=== PATIENT | male | born 1945 | race Caucasian/White ===

== ENCOUNTER 2016-08-21 13:15 | Emergency (ER) | payer MEDICARE, OTHER ==
[~2016-08-21] VITALS: Ht 170.2 cm; Wt 90.0 kg
[~2016-08-21 13:15] MED LIST: ALLO100 PO; APIX5 PO; LOPE2TAB3 PO; NEPHCAP PO; PANT40IN3 PO; PRAV20 PO
[2016-08-21 13:52] VITALS: BP 141/68; PULSE 73; RESP 20; O2SAT 100
[2016-08-21] MEDS ORDERED: SODIUM CHLORIDE 0.9% FLUSH 5 ML FLUSH IVF PRN (14:00)
[2016-08-21] MEDS ORDERED: NITROGLYCERIN 0.4 MG SL 25 TABS/BTL SL ONE (14:00)
--- NOTE | 2016-08-21 14:15 | PD ---
HPI Chief Complaint: Chest Pain Time Seen by Provider: 14:00 Travel History International Travel<30 days: No Contact w/Intl Traveler<30days: No Traveled to known affect area: No History of Present Illness HPI Patient is a 71-year-old male presenting to the emergency department for evaluation of chest pain. Patient states the pain in his chest started at 11 AM this morning, he was sitting on his porch when the pain started. Patient stated at that same time he felt short of breath, lightheaded, nauseated. He states the pain is a 7 out of 10 and describes it as pressure-like. Patient's significant other is at bedside and states the patient was acting spacey, mumbling when the pain initially started. Patient states he was in [facility] last week with strokelike symptoms and diagnosed with a TIA. He also reports having cardiac stents replaced one month ago with Dr. johnson in [facility] as well. Patient's past medical history includes pacemaker/defibrillator, atrial fibrillation, congestive heart failure, end-stage renal disease on dialysis, coronary artery disease, CVA, diabetes, hypertension. Patient's head to open- heart surgeries. He's had a triple bypass in 1982, quadruple bypass in 2003. PFSH Past Medical History Hx Anticoagulant Therapy: Yes (COUMADIN, PLAVIX ) Anemia: Yes (chronic GI bleed) Arthritis: Yes Asthma: No Atrial Fibrillation: Yes Autoimmune Disease: No Blood Disorders: No Anxiety: No Depression: No Cancer: No Cardiac Catheterization: Yes High Cholesterol: Yes Chemotherapy: No Chest Pain: Yes Congestive Heart Failure: Yes COPD: No Cerebrovascular Accident: Yes Coronary Artery Disease: Yes Diabetes: Yes Patient Takes Glucophage: No Dialysis: Yes (--) Diminished Hearing: No Gastrointestinal Disorders: Yes (chronic GI bleed) GERD: Yes Glaucoma: No Headaches: No Hepatitis: No Hiatal Hernia: Yes Heparin Induced Thrombocytopen: No Hypertension: Yes Immune Disorder: No Kidney Stones: No Musculoskeletal: Yes (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) Neurologic: Yes (CVA X 9, DIABETIC NEUROPATHY, RT SIDE WEAKNESS) Psychiatric: No Reproductive: No Respiratory: No Immunizations Current: Yes Migraines: No Myocardial Infarction: Yes Radiation Therapy: No Renal Failure: Yes (on hemodialysis) Seizures: No Sickle Cell Disease: No Sleep Apnea: No Thyroid Disease: No Ulcer: Yes ?: Not Past Surgical History AICD: Yes Appendectomy: Yes Arteriovenous Shunt: Yes (LEFT FOREARM FISTULA) Body Medical Devices: aicd Cholecystectomy: Yes Coronary Artery Bypass Graft: Yes (triple, quadruple) Coronary Stent: Yes Ear Surgery: No Endocrine Surgery: No Eye Surgery: Yes (RIGHT CATARACT-CURRENT. LEFT FIXED PRIOR) Genitourinary Surgery: No Gynecologic Surgery: No Insulin Pump: No Joint Replacement: No Neurologic Surgery: No Oral Surgery: No Pacemaker: Yes Thoracic Surgery: Yes Tonsillectomy: Yes Family History Family Myocardial Infarction: Yes Social History Alcohol Use: No Tobacco Use: No Substance Use: No Allergies-Medications (Allergen,Severity, Reaction): Coded Allergies: Morphine (Verified Allergy, Severe, GI UPSET/SWELLING, 08/21/16) Sulfa (Verified Allergy, Severe, SWELLING , 08/21/16) MRI PRECAUTION (Verified Adverse Reaction, Severe, PACEMAKER, 08/21/16) NON REVO PACEMAKER PER PT, NO CARD, DML 02/15/16 Gabapentin (Verified Adverse Reaction, Mild, 08/21/16) Reported Meds & Prescriptions Reported Meds & Active Scripts Active Reported Tramadol (Tramadol HCl) 50 Mg Tab 25 Mg PO Q4H PRN Nitroglycerin SL (Nitroglycerin) 0.4 Mg Subl 0.4 Mg SL DIRECTED PRN ONE TABLET UNDER THE TONGUE NEEDED FOR CHEST PAIN, MAY REPEAT EVERY FIVE MINUTES FOR A TOTAL OF 3 DOSES OR CALL 911 IF NO RELIEF Stool Softener (Docusate Sodium) 100 Mg Cap 0 PO Nephrocaps (B-Complex W/ C & Folic Acid) 1 Cap 1 Cap PO DAILY If on dialysis, take after treatment. Benadryl Allergy (Diphenhydramine HCl) 25 Mg Tab 25 Mg PO Q6H PRN Loperamide (Loperamide HCl) 2 Mg Tab 2 Mg PO DIRECTED PRN One tablet after each loose stool. Not to exceed 8 tablets per day. Plavix (Clopidogrel Bisulfate) 75 Mg Tab 75 Mg PO DAILY Coumadin (Warfarin) 1 Mg Tab 1 Mg PO DAILY Pantoprazole (Pantoprazole Sodium) 40 Mg Tab 40 Mg PO DAILY Zyloprim (Allopurinol) 100 Mg Tab 100 Mg PO DAILY Review of Systems Except as stated in HPI: all other systems reviewed are Neg General / Constitutional: No: Fever Eyes: No: Blurred Vision HENT: Positive: Lightheadedness, No: Headaches Cardiovascular: Positive: Chest Pain or Discomfort, No: Tachycardia, Diaphoresis, Syncope, Edema Respiratory: Positive: Shortness of Breath, No: Cough, Wheezing Gastrointestinal: Positive: Nausea, No: Vomiting, Diarrhea, Abdominal Pain Musculoskeletal: No: Myalgias Neurologic: No: Syncope Physical Exam Narrative GENERAL: Well-developed, well-nourished, alert elderly gentleman. Resting comfortably in no acute distress. Significant other at bedside. SKIN: Warm and dry. HEAD: Atraumatic. Normocephalic. EYES: Pupils equal and round. No scleral icterus. No injection or drainage. ENT: No nasal bleeding or discharge. Mucous membranes pink and moist. NECK: Trachea midline. No JVD. CARDIOVASCULAR: Irregularly irregular. 2/6 systolic murmur appreciated. Left upper arm AV fistula, positive thrill, positive bruit. RESPIRATORY: No accessory muscle use. Clear to auscultation. Breath sounds equal bilaterally. GASTROINTESTINAL: Abdomen soft, non-tender, nondistended. Hepatic and splenic margins not palpable. MUSCULOSKELETAL: No obvious deformities. No clubbing. No cyanosis. No edema. NEUROLOGICAL: Awake and alert. No obvious cranial nerve deficits. Motor grossly within normal limits. Normal speech. PSYCHIATRIC: Appropriate mood and affect; insight and judgment normal. Data Data Last Documented VS Vital Signs Date Time Temp Pulse Resp B/P Pulse Ox O2 Delivery O2 Flow Rate FiO2 08/21/16 19:10 77 18 126/59 100 Room Air 08/21/16 14:48 98.3 Orders Electrocardiogram (08/21/16 ) Complete Blood Count With Diff (08/21/16 13:26) Comprehensive Metabolic Panel (08/21/16 13:26) Troponin I (08/21/16 13:26) Prothrombin Time / Inr (Pt) (08/21/16 13:26) Act Partial Throm Time (Ptt) (08/21/16 13:26) B-Type Natriuretic Peptide (08/21/16 13:58) Ckmb (Isoenzyme) Profile (08/21/16 13:58) Chest, Single Ap (08/21/16 13:58) Ecg Monitoring (08/21/16 13:58) Bilateral Bp Monitoring (08/21/16 13:58) Iv Access Insert/Monitor (08/21/16 13:58) Oximetry (08/21/16 13:58) Sodium Chloride 0.9% Flush (Ns Flush) (08/21/16 14:00) Nitroglycerin Sl (Nitrostat Sl) (08/21/16 14:00) Tramadol (Ultram) (08/21/16 16:15) Ondansetron Inj (Zofran Inj) (08/21/16 16:30) Troponin I (08/21/16 17:46) Labs Laboratory Tests Test 08/21/16 08/21/16 08/21/16 14:24 16:11 18:37 Sodium Level 139 MEQ/L Potassium Level 4.0 MEQ/L Chloride Level 101 MEQ/L Carbon Dioxide Level 25.8 MEQ/L Anion Gap 12 MEQ/L Blood Urea Nitrogen 30 MG/DL Creatinine 5.09 MG/DL Estimat Glomerular Filtration 11 ML/MIN Rate Random Glucose 132 MG/DL Calcium Level 9.2 MG/DL Total Bilirubin 0.9 MG/DL Aspartate Amino Transf 18 U/L (AST/SGOT) Alanine Aminotransferase 11 U/L (ALT/SGPT) Alkaline Phosphatase 277 U/L Total Creatine Kinase 91 U/L Troponin I 0.04 NG/ML 0.03 NG/ML B-Type Natriuretic Peptide 2127 PG/ML Total Protein 7.5 GM/DL Albumin 3.2 GM/DL White Blood Count 3.1 TH/MM3 Red Blood Count 2.69 MIL/MM3 Hemoglobin 8.5 GM/DL Hematocrit 25.4 % Mean Corpuscular Volume 94.4 FL Mean Corpuscular Hemoglobin 31.7 PG Mean Corpuscular Hemoglobin 33.6 % Concent Red Cell Distribution Width 19.3 % Platelet Count 113 TH/MM3 Mean Platelet Volume 11.7 FL Neutrophils (%) (Auto) 61.0 % Lymphocytes (%) (Auto) 17.1 % Monocytes (%) (Auto) 18.8 % Eosinophils (%) (Auto) 2.6 % Basophils (%) (Auto) 0.5 % Neutrophils # (Auto) 1.9 TH/MM3 Lymphocytes # (Auto) 0.5 TH/MM3 Monocytes # (Auto) 0.6 TH/MM3 Eosinophils # (Auto) 0.1 TH/MM3 Basophils # (Auto) 0.0 TH/MM3 CBC Comment DIFF FINAL Differential Comment Prothrombin Time 18.9 SEC Prothromb Time International 1.7 RATIO Ratio Activated Partial 39.4 SEC Thromboplast Time MDM Medical Decision Making Medical Screen Exam Complete: Yes Emergency Medical Condition: Yes Medical Record Reviewed: Yes Interpretation(s) Being in the Laboratory Tests Test 08/21/16 08/21/16 14:24 16:11 Sodium Level 139 MEQ/L Potassium Level 4.0 MEQ/L Chloride Level 101 MEQ/L Carbon Dioxide Level 25.8 MEQ/L Anion Gap 12 MEQ/L Blood Urea Nitrogen 30 MG/DL Creatinine 5.09 MG/DL Estimat Glomerular Filtration 11 ML/MIN Rate Random Glucose 132 MG/DL Calcium Level 9.2 MG/DL Total Bilirubin 0.9 MG/DL Aspartate Amino Transf 18 U/L (AST/SGOT) Alanine Aminotransferase 11 U/L (ALT/SGPT) Alkaline Phosphatase 277 U/L Total Creatine Kinase 91 U/L Troponin I 0.04 NG/ML B-Type Natriuretic Peptide 2127 PG/ML Total Protein 7.5 GM/DL Albumin 3.2 GM/DL White Blood Count 3.1 TH/MM3 Red Blood Count 2.69 MIL/MM3 Hemoglobin 8.5 GM/DL Hematocrit 25.4 % Mean Corpuscular Volume 94.4 FL Mean Corpuscular Hemoglobin 31.7 PG Mean Corpuscular Hemoglobin 33.6 % Concent Red Cell Distribution Width 19.3 % Platelet Count 113 TH/MM3 Mean Platelet Volume 11.7 FL Neutrophils (%) (Auto) 61.0 % Lymphocytes (%) (Auto) 17.1 % Monocytes (%) (Auto) 18.8 % Eosinophils (%) (Auto) 2.6 % Basophils (%) (Auto) 0.5 % Neutrophils # (Auto) 1.9 TH/MM3 Lymphocytes # (Auto) 0.5 TH/MM3 Monocytes # (Auto) 0.6 TH/MM3 Eosinophils # (Auto) 0.1 TH/MM3 Basophils # (Auto) 0.0 TH/MM3 CBC Comment DIFF FINAL Differential Comment Prothrombin Time 18.9 SEC Prothromb Time International 1.7 RATIO Ratio Activated Partial 39.4 SEC Thromboplast Time Last Impressions Chest X-Ray 08/21/16 0388 Signed Impressions: Service Date/Time: Sunday, August 21, 2016 14:29 - CONCLUSION: Stable chest x-ray. No acute cardiopulmonary abnormality is identified. Axel Barkley MD Vital Signs Date Time Temp Pulse Resp B/P Pulse Ox O2 Delivery O2 Flow Rate FiO2 08/21/16 13:52 73 20 141/68 100 Room Air 08/21/16 13:52 72 20 100 Room Air Differential Diagnosis Unstable angina versus acute IN versus electrolyte abnormality versus chest wall pain versus TIA versus CVA versus other Narrative Course Patient is a 71-year-old male presented to him or his partner for evaluation of chest pain that started approximately 3 hours prior to his arrival. Patient has a known history of coronary artery disease, hypertension, A. fib, end-stage renal disease on hemodialysis, CVA. Patient had cardiac stents placed last month with Dr. Dugan per his report. Patient has AICD, defibrillator and right chest wall, is a [employer] device. [employer] was paged for interrogation. Labs , imaging ordered and pending. Patient placed on clindamycin, continuous pulse oximetry. IV access was initiated. Family member at bedside. [employer] interrogated AICD, there there were no events this morning that would coincide with the patient's chest pain. CBC shows a mild anemia, patient has a history of this. Chemistry with elevated BUN and creatinine which is to be expected. Troponin is negative BNP is elevated at >2200, likely secondary to end-stage renal disease. Patient' s chest x-ray shows no acute cardiopulmonary process. EKG shows atrial fibrillation. Chest pain was unrelieved by one nitroglycerin sublingual, patient requested tramadol. Tramadol ordered by my attending physician. Patient's vital signs remained stable. Paged on-call physician for Dr. Dugan who has evaluated patient during his hospitalizations over the course of the last several months in [facility]. Dr. Dugan returned page, he stated that patient had stent placement in February 2016, he's been at [facility] several times, twice in July on 07/24 and 08/16. His EKG shows A. fib with T-wave inversions in V4 5 and 6. He reports that he is a chronically elevated troponin. Dr. Dugan recommended a second troponin and if that was negative for patient to be discharged home. His medical records have been reviewed by myself and my attending physician. Plan of care was also reviewed with my attending physician. Patient is to follow-up with his primary care provider at the [facility] as well as Dr. Dugan on an outpatient basis. He is encouraged to return to emergency department for any new or worsening symptoms. He is encouraged to continue his home medications as previously prescribed. Patient verbalized understanding of these instructions. Patient is stable for discharge. Diagnosis Primary Impression: Chest pain Qualified Code: R07.9 - Chest pain, unspecified type Additional Impressions: Pancytopenia ESRD (end stage renal disease) Referrals: Cr Dugan MD 2 days Primary Care Physician Patient Instructions: Chest Pain (ED), General Instructions Additional Instructions: Return to emergency department immediately for any new or worsening symptoms Continue home medications as previously prescribed Follow-up with Dr. Dugan in 2-3 days Follow-up with your primary doctor Med/Other Pt SpecificInfo: No Change to Meds Disposition: 01 DISCHARGE HOME Renetta Mayo Aug 21, 2016 14:15
--- NOTE | 2016-08-21 14:39 | RADRPT ---
EXAM DATE/TIME: 08/21/2016 14:29 [facility] COMPARISON: CHEST SINGLE AP, February 14, 2016, 18:19. INDICATIONS : Chest pain. MEDICAL HISTORY : Congestive heart failure. Hypertension. A-Fib. SURGICAL HISTORY : Pacemaker. CABG. Cardiac stents. ENCOUNTER: Initial ACUITY: 1 day PAIN SCORE: 7/10 LOCATION: chest FINDINGS: Portable AP view of the chest demonstrates a normal-sized cardiac silhouette with calcification of th e aorta. Patient is post median sternotomy and CABG. Right chest wall pacing device/AICD is present. No effusion, consolidation, or pneumothorax is identified. Bones and soft tissues demonstrate no acut e finding. CONCLUSION: Stable chest x-ray. No acute cardiopulmonary abnormality is identified. Axel Barkley MD on August 21, 2016 at 14:36 Board Certified Radiologist. This report was verified electronically.
[2016-08-21 14:48] VITALS: BP 133/62; PULSE 68; RESP 20; TEMP 98.3; O2SAT 100
[2016-08-21 15:04] LABS: CREATINE KINASE 91 U/L (39-308)
[2016-08-21] MEDS ORDERED: PANT40TA3 PO (15:05)
[2016-08-21] MEDS ORDERED: BENA25TA3 PO (15:05)
[2016-08-21] MEDS ORDERED: COUM1TAB PO (15:05)
[2016-08-21] MEDS ORDERED: PLAV75TA29 PO (15:05)
[2016-08-21] MEDS ORDERED: ALLO100 PO (15:05)
[2016-08-21] MEDS ORDERED: LOPE2TAB3 PO (15:05)
[2016-08-21] MEDS ORDERED: B-CO1CAP9 PO (15:05)
[2016-08-21] MEDS ORDERED: STOO100C PO (15:06)
[2016-08-21 15:08] VITALS: BP 118/59; PULSE 72; RESP 18; O2SAT 99
[2016-08-21] MEDS ORDERED: TRAM50TA PO (15:13)
[2016-08-21] MEDS ORDERED: NITR1SUB3 SL (15:13)
[2016-08-21] MEDS ORDERED: traMADol HCL 50 MG TAB PO ONE (16:15)
[2016-08-21] MEDS ORDERED: ONDANSETRON HCL 4 MG/2 ML VIAL IV PUSH ONE (16:30)
[2016-08-21 16:32] LABS: AUTOMATED NEUTROPHIL # 1.9 TH/MM3 (1.8-7.7); BASOPHIL % 0.5 % (0.0-2.0); EOSINOPHIL # 0.1 TH/MM3 (0-0.4); EOSINOPHIL % 2.6 % (0.0-4.0); HEMATOCRIT 25.4 % (39.0-51.0); HEMO FLAGS DIFF FINAL; LYMPH % 17.1 % (9.0-44.0); LYMPHOCYTE # 0.5 TH/MM3 (1.0-4.8); MEAN CELL VOLUME 94.4 FL (80.0-100.0); MEAN CORPUSCULAR HEMOGLOBIN 31.7 PG (27.0-34.0); MEAN CORPUSCULAR HGB CONC 33.6 % (32.0-36.0); MONO % 18.8 % (0.0-8.0); PLATELET COUNT 113 TH/MM3 (150-450); RED BLOOD COUNT 2.69 MIL/MM3 (4.50-5.90); RED CELL DISTRIBUTION WIDTH 19.3 % (11.6-17.2); WHITE BLOOD COUNT 3.1 TH/MM3 (4.0-11.0)
[2016-08-21 16:36] LABS: ANION GAP 12 MEQ/L (5-15); BICARBONATE 25.8 MEQ/L (21.0-32.0); BLOOD UREA NITROGEN 30 MG/DL (7-18); CHLORIDE 101 MEQ/L (98-107); GLOMERULAR FILTRATION RATE 11 ML/MIN (>89); SODIUM (NA) 139 MEQ/L (136-145)
[2016-08-21 16:41] LABS: ALKALINE PHOSPHATASE 277 U/L (45-117); ALT (GPT) 11 U/L (12-78); AST (GOT) 18 U/L (15-37); TOTAL BILIRUBIN ADULT 0.9 MG/DL (0.2-1.0)
[2016-08-21 16:44] LABS: APTT (PATIENT) 39.4 SEC (24.3-30.1); INTERNATIONAL NORMALIZED RATIO 1.7 RATIO; PROTHROMBIN TIME - PATIENT 18.9 SEC (9.8-11.6)
[2016-08-21 18:32] VITALS: BP 146/71; PULSE 78; RESP 20; O2SAT 98
--- NOTE | 2016-08-21 18:36 | PD ---
Data Data Last Documented VS Vital Signs Date Time Temp Pulse Resp B/P Pulse Ox O2 Delivery O2 Flow Rate FiO2 08/21/16 18:32 78 20 146/71 98 Room Air 08/21/16 14:48 98.3 Orders Electrocardiogram (08/21/16 ) Complete Blood Count With Diff (08/21/16 13:26) Comprehensive Metabolic Panel (08/21/16 13:26) Troponin I (08/21/16 13:26) Prothrombin Time / Inr (Pt) (08/21/16 13:26) Act Partial Throm Time (Ptt) (08/21/16 13:26) B-Type Natriuretic Peptide (08/21/16 13:58) Ckmb (Isoenzyme) Profile (08/21/16 13:58) Chest, Single Ap (08/21/16 13:58) Ecg Monitoring (08/21/16 13:58) Bilateral Bp Monitoring (08/21/16 13:58) Iv Access Insert/Monitor (08/21/16 13:58) Oximetry (08/21/16 13:58) Sodium Chloride 0.9% Flush (Ns Flush) (08/21/16 14:00) Nitroglycerin Sl (Nitrostat Sl) (08/21/16 14:00) Tramadol (Ultram) (08/21/16 16:15) Ondansetron Inj (Zofran Inj) (08/21/16 16:30) Troponin I (08/21/16 17:46) Labs Laboratory Tests Test 08/21/16 08/21/16 14:24 16:11 Sodium Level 139 MEQ/L Potassium Level 4.0 MEQ/L Chloride Level 101 MEQ/L Carbon Dioxide Level 25.8 MEQ/L Anion Gap 12 MEQ/L Blood Urea Nitrogen 30 MG/DL Creatinine 5.09 MG/DL Estimat Glomerular Filtration 11 ML/MIN Rate Random Glucose 132 MG/DL Calcium Level 9.2 MG/DL Total Bilirubin 0.9 MG/DL Aspartate Amino Transf 18 U/L (AST/SGOT) Alanine Aminotransferase 11 U/L (ALT/SGPT) Alkaline Phosphatase 277 U/L Total Creatine Kinase 91 U/L Troponin I 0.04 NG/ML B-Type Natriuretic Peptide 2127 PG/ML Total Protein 7.5 GM/DL Albumin 3.2 GM/DL White Blood Count 3.1 TH/MM3 Red Blood Count 2.69 MIL/MM3 Hemoglobin 8.5 GM/DL Hematocrit 25.4 % Mean Corpuscular Volume 94.4 FL Mean Corpuscular Hemoglobin 31.7 PG Mean Corpuscular Hemoglobin 33.6 % Concent Red Cell Distribution Width 19.3 % Platelet Count 113 TH/MM3 Mean Platelet Volume 11.7 FL Neutrophils (%) (Auto) 61.0 % Lymphocytes (%) (Auto) 17.1 % Monocytes (%) (Auto) 18.8 % Eosinophils (%) (Auto) 2.6 % Basophils (%) (Auto) 0.5 % Neutrophils # (Auto) 1.9 TH/MM3 Lymphocytes # (Auto) 0.5 TH/MM3 Monocytes # (Auto) 0.6 TH/MM3 Eosinophils # (Auto) 0.1 TH/MM3 Basophils # (Auto) 0.0 TH/MM3 CBC Comment DIFF FINAL Differential Comment Prothrombin Time 18.9 SEC Prothromb Time International 1.7 RATIO Ratio Activated Partial 39.4 SEC Thromboplast Time MDM Supervised Visit with GUY: Yes Narrative Course The history, exam, and medical decision-making in the associated mid-level provider note were completed with my assistance. I reviewed and agree with the findings presented. I attest that I had a [id number] encounter with the patient on the same day, and personally performed and documented my assessment and findings in the medical record. *My assessment and Findings: 71-year-old male multiple medical problems including most notably end-stage renal disease, A. fib, CAD, who presents with chest pain. Episode started this morning, is been constant since. He has known severe coronary artery disease. He had a recent heart catheter within the past couple months. Said admission for atypical chest pain. He is admitted back in January and cardiology evaluation at that time said continue medical management. We interrogated his pacemaker because his partner said that he looked a little bit unwell during the episode. There is no events recorded. Initial negative workup. 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 Patient is obviously a chronically high risk for adverse cardiovascular events. 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 Roger George MD Aug 21, 2016 18:36
[2016-08-21 19:10] VITALS: BP 126/59; PULSE 77; RESP 18; O2SAT 100
--- NOTE | 2016-08-22 14:34 | EKG ---
Date Performed: 08/21/2016 Time Performed: 13:33:02 PTAGE: 71 years EKG: ATRIAL FIBRILLATION NONSPECIFIC ST & T-WAVE ABNORMALITY ABNORMAL ECG Compared to prior trac ing no significant change PREVIOUS TRACING : 02/21/2016 20.51 DOCTOR: Daljit Regan Interpretating Date/Time 08/22/2016 14:33:23
== END 2016-08-21 19:48 | disposition home or self-care (01) ==
LOC: NEPE 13:15
DX: R07.9 Chest pain, unspecified (principal); D61.818 Other pancytopenia; N18.6 End stage renal disease; I12.0 Hypertensive chronic kidney disease with stage 5 chronic kidney disease or end stage renal disease; E11.22 Type 2 diabetes mellitus with diabetic chronic kidney disease; E11.40 Type 2 diabetes mellitus with diabetic neuropathy, unspecified; I48.91 Unspecified atrial fibrillation; E78.00 Pure hypercholesterolemia, unspecified; I25.2 Old myocardial infarction; Z95.0 Presence of cardiac pacemaker; R94.31 Abnormal electrocardiogram [ECG] [EKG]; Z99.2 Dependence on renal dialysis; Z95.1 Presence of aortocoronary bypass graft
CPT/HCPCS: 71010; 80053; 82550; 83880; 84484; 85025; 85610; 85730; 93005; 96374; 99285; J2405